=== PATIENT | female | born 1960 | race Caucasian/White ===

== ENCOUNTER 2017-06-30 19:12 | Emergency (ER) | payer OTHER ==
[2017-06-30] MEDS ORDERED: Sodium Phosphate ADULT ENEMA* 118 ml bottle PR ONE (19:50)
[2017-06-30 20:27] VITALS: BP 162/100
--- NOTE | 2017-06-30 20:34 | ED ---
Jose Martin Mensah Nikita, scribed for David Hatfield MD on 06/30/17 at 1958 . GI/ HPI - HPI Summary HPI Summary: This patient is a 56 year old F BIBA to ED with a chief complaint of intermittent bowel discomfort. The patient was seen by a public area supervisor where she had a pessori taken out (had it in for 12 years) and went to urgent care on the same day and was dx with PNA in the left lower lobe and non-STEMI TX. She had a catheter and a stent put in. The patient rates the pain 0/10 in severity. Symptoms aggravated by nothing. Symptoms alleviated by nothing (has been taking laxatives and last took 150mL mag citrate at 1500 with no results). Patient reports she had a small hard BM earlier today but was afraid to push, and she has been having rectal pressure. Her face has been getting red from straining while trying to have BM. Patient denies CP and difficulty breathing. - History of Current Complaint Chief Complaint: EDGeneral Time Seen by Provider: 06/30/17 19:24 Stated Complaint: GENERAL ILLNESS Hx Obtained From: Patient Onset/Duration: Started Weeks Ago, Still Present Timing: Intermittent Current Severity: None Pain Intensity: 0 Associated Signs and Symptoms: Positive: Other: - Patient reports she had a small hard BM earlier today but was afraid to push, and she has been having rectal pressure. Her face has been getting red from straining while trying to have BM. Patient denies CP and difficulty breathing. Additional Signs & Symptoms: Positive: Other: - Patient reports she had a small hard BM earlier today but was afraid to push, and she has been having rectal pressure. Her face has been getting red from straining while trying to have BM. Patient denies CP and difficulty breathing. Aggravating Factor(s): Nothing Alleviating Factor(s): Nothing - has been taking laxatives and last took 150mL mag citrate at 1500 with no results - Allergy/Home Medications Allergies/Adverse Reactions: Allergies Allergy/AdvReac Type Severity Reaction Status Date / Time Sulfa (Sulfonamide Allergy Unknown Verified 06/30/17 19:35 Antibiotics) Reaction Details PMH/Surg Hx/FS Hx/Imm Hx Cardiovascular History: Reports: Hx Myocardial Infarction Respiratory History: Reports: Hx Pneumonia Infectious Disease History: No Infectious Disease History: Denies: Traveled Outside the [place] in Last 30 Days - Social History Alcohol Use: Occasionally Substance Use Type: Reports: Marijuana Substance Use Comment - Amount & Last Used: weekly Smoking Status (MU): Light Every Day Tobacco Smoker Review of Systems Positive: Other - face has been getting red from straining Negative: Chest Pain Positive: Other - denies difficulty breathing Positive: Other - constipation, rectal pressure, bowel discomfort All Other Systems Reviewed And Are Negative: Yes Physical Exam - Summary Physical Exam Summary: Appearance: Well appearing, no pain distress Skin: warm, dry, reflects adequate perfusion Head/face: normal Eyes: EOMI, FRANCISCO ENT: normal Neck: supple, non-tender Respiratory: CTA, breath sounds present Cardiovascular: RRR, pulses symmetrical Abdomen: non-tender, soft Bowel Sounds: constipation Musculoskeletal: normal, strength/ROM intact Neuro: normal, sensory motor intact, A&Ox3 Rectal: soft stuff near the anus and hard stool on the vulva up higher, small external hemorrhoids, and no bladder or uterine prolapse Triage Information Reviewed: Yes Vital Signs On Initial Exam: Initial Vitals Temp Pulse Resp BP Pulse Ox 98.1 F 74 18 164/101 97 06/30/17 19:28 06/30/17 19:28 06/30/17 19:28 06/30/17 19:28 06/30/17 19:28 Vital Signs Reviewed: Yes Diagnostics - Vital Signs Vital Signs Temp Pulse Resp BP Pulse Ox 06/30/17 19:28 98.1 F 74 18 164/101 97 - Laboratory Lab Statement: Any lab studies that have been ordered have been reviewed, and results considered in the medical decision making process. GIGU Course/Dx - Course Course Of Treatment: Pt with hard stool on exam. States she was concerned about her BP going up when she was straining. No local doc. Gave enema for home use and meds for symptom control. Referred for local PMD -- for BP check etc. - Diagnoses Differential Diagnoses - Female: Constipation Provider Diagnoses: Constipation Discharge - Sign-Out/Discharge Documenting (check all that apply): Discharge - Discharge Plan Condition: Good Disposition: HOME Prescriptions: Bisacodyl SUPP* [Dulcolax Supp*] 10 mg .SEE ORDER BID PRN #10 supp PRN Reason: Constipation Polyethylene Glycol 3350 BTL* [Miralax] 1 cap PO TID PRN #1 btl PRN Reason: Constipation Patient Education Materials: Constipation (ED) Referrals: [facility] [Outside] No Primary Care Phys,NOPCP [Primary Care Provider] - Additional Instructions: Natural fruit juices may help. Use Miralax up to 3 times daily until stools are soft/loose. High fiber diet. Call to establish with a local doctor in the morning. - Billing Disposition and Condition Condition: GOOD Disposition: HOME The documentation as recorded by the Jose Martin east Nikita accurately reflects the service I personally performed and the decisions made by me, David Hatfield MD.
== END 2017-06-30 20:25 | disposition home or self-care (01) ==
LOC: ED 19:12
DX: K59.00 Constipation, unspecified (principal)
CPT/HCPCS: 99282; A9270-GY

== ENCOUNTER 2018-03-28 14:05 | Inpatient (IN) | payer OTHER ==
--- OUTSIDE RECORDS SUMMARY | 2018-03-28 14:26 | XMS REPORT | Continuity of Care Document ---
:1960 External Reference #:[id number] Author Name MayaLarryLianne osorio Care Team Providers Name Role Phone Julia Mercedes DO Primary Care Physician Unavailable Payers Type Date Identification Numbers Payment Provider Subscriber Policy Number: [id number] Santhosh Nelson PayID: [id number] [address] [place] [address] Advance Directives Description No Information Available Problems Description No Information Family History Description No Information Available Social History Type Date Description Comments Sex Unknown Lives With Assisted living [facility], [facility] Tobacco Use Start: Unknown End: Unknown Patient is a former smoker Smoking Status Reviewed: 03/28/18 Patient is a former smoker Allergies, Adverse Reactions, Alerts Date Description Reaction Status Severity Comments 03/27/2018 Sulfa Antibiotics Active Medications Medication Date Status Form Strength Qnty SIG Indications Ordering Provider Colace 03/26 Active Capsules 100mg Humaira Beronica Mauricio NP Clopidogrel Active Tablets 75mg 1 by mouth Unknown Bisulfate /0000 every day Hydrocodone-Ac Active Tablets 5-325mg 1 or 2 tabs Unknown etaminophen /0000 by mouth every 6-8 hours as needed for pain Lactulose Active Solution 10GM/15ML 15 Unknown /0000 milliliters three times a daily Lisinopril 00 Active Tablets 5mg 1 by mouth Unknown /0000 every day Metoprolol 00 Active Tablets 25mg 1 by mouth Unknown Succinate ER /0000 ER 24HR every day Nitroglycerin Active Tablets 0.4mg 1 sl q5mins Unknown /0000 Sub x3 as needed for chest pain Oxycodone HCL Active Capsules 5mg 1 - 2 tabs Unknown /0000 by mouth every 12 hours as needed pain Preparation H 00 Active Cream 5-14.4% apply to Unknown /0000 external rectal area four times a day as needed Tramadol HCL Active Tablets 50mg 1-2 tablets Unknown /0000 by mouth every 6 hours as needed pain Aspirin Adult Active Tablets 81mg 1 by mouth Unknown Low Dose /0000 DR every day Atorvastatin Active Tablets 40mg 1 by mouth Unknown Calcium /0000 every day Acetaminophen Active Tablets 500mg 2 tab 3 Unknown /0000 times daily as needed Immunizations Description No Information Available Vital Signs Date Vital Result Comment 03/28/2018 9:27am Height 61 inches 5'1" Weight 171.00 lb Heart Rate 72 /min BP Systolic 130 mmHg BP Diastolic 80 mmHg Respiratory Rate 16 /min Body Temperature 98.3 F BMI (Body Mass Index) 32.3 kg/m2 Results Description No Information Available Procedures Description No Information Available Encounters Description No Information Available Plan of Treatment 03/28/2018 - Adryan Loomis MD, FACSK61.0 Anal abscessRecommendations:warm compresses and/or Sitz bath to encourage healing.K59.00 Constipation, unspecifiedComments:Fecal impaction will require manual disimpaction.
[2018-03-28] MEDS ORDERED: Morphine INJ* 2 MG/ML 1 ML SYRINGE (TWO MG - NEW SYRINGE VERSION) IV ONE (16:22)
--- NOTE | 2018-03-28 16:25 | ED ---
Complex/Multi-Sys Presentation - HPI Summary HPI Summary: A 57 y/o female presents to the ED c/o severe constipation reaching 7/10 in severity. As per triage, "was seen at general surgeon this AM to eval for cyst near rectum. rectal exam done and referred to ED to eval for contipation. states last significant BM was 18 days ago. states cyst ruptured two days ago, also has hemrrhoids, both are very painful. reports fear/anxiety about stooling due to pain and family hx of RI with vagal/stooling. wound vac to right lower ext". According to the patient, on March 12, 2018 she had a femoral pop graft in which her 25 agnes from her groin and 20 agnes from her leg were recently removed. She stated that she has a wound vac due to a wound before her surgery. She stated that she was constipated before surgery but was able to use the bathroom very little. She became constipated during the surgery which is when all of a sudden after the surgery her cyst on her bottom popped which led to brown mucous and blood coming out. She stated that she was also bleeding from her rectum. She stated that she has so much pressure in her rectum. Patient is in in-patient rehabilitation for her injuries/surgeries, Patient stated that the surgeon at the rehab facility looked like a drain and was then referred to [facility] general surgery. Dr. Anderson who did a rectal, recommended the patient come to ED to have it surgically extracted. Patient denies any fevers, chills, double vision, blurred vision, ear pain, sore throat, chest pain, SOB, back pain, but does have anxiety. Patient also has trouble urinating. During examination, patient noted that she is much pain and is borderline tearful. Patient stated that she wants to be sedated and then undergo the procedure. PMHx of RI. Patient has been taking a stool softener. - History Of Current Complaint Chief Complaint: EDGeneral Hx Obtained From: Patient Onset/Duration: Sudden Onset, Lasting Days, Still Present, Worse Since Timing: Constant Severity Currently: Moderate - 7/10 Severity Initially: Moderate - 7/10 Location: Pain At: - RECTAL PAIN Character: Pressure Aggravating Factor(s): NOTHING Alleviating Factor(s): NOTHING Associated Signs And Symptoms: Positive: Other - DECREASE/DIFFICULTY IN URINATION - Allergies/Home Medications Allergies/Adverse Reactions: Allergies Allergy/AdvReac Type Severity Reaction Status Date / Time adhesive Allergy Itching Verified 03/28/18 14:20 Sulfa (Sulfonamide Allergy Unknown Verified 03/28/18 14:20 Antibiotics) Reaction Details Home Medications: Home Medications Anusol Hc Supp* 25 mg RI BID 03/28/18 [History Confirmed 03/28/18] Docusate Sodium 100 mg PO DAILY 03/28/18 [History Confirmed 03/28/18] Hydrocodone-Acetamin 5-325 mg 1 tab PO BEDTIME 03/28/18 [History Confirmed 03/28] Lactulose* 15 ml PO Q6HR PRN 03/28/18 [History Confirmed 03/28/18] Milk of Magnesia 30 ml PO Q6HR PRN 03/28/18 [History Confirmed 03/28/18] Nicorette 2 mg PO Q2HR PRN 03/28/18 [History Confirmed 03/28/18] Nicotine Inhaler* 1 inh INH Q2HR PRN 03/28/18 [History Confirmed 03/28/18] Oxycodone HCl 5 mg PO Q4HR PRN 03/28/18 [History Confirmed 03/28/18] Polyethylene Glycol 3350 BTL* [Miralax] 1 cap PO DAILY 03/28/18 [History Confirmed 03/28/18] Preparation H* 1 applic RI Q6HR PRN 03/28/18 [History Confirmed 03/28/18] Trimo-Flores Jelly 1 applic VAGINAL SEE INSTRUCTIONS 03/28/18 [History Confirmed ] Tylenol Extra Strength 1,000 mg PO Q6HR PRN 03/28/18 [History Confirmed 03/28/18 ] traMADol TAB* 50 mg PO Q6HR PRN 03/28/18 [History Confirmed 03/28/18] PMH/Surg Hx/FS Hx/Imm Hx Cardiovascular History: Reports: Hx Myocardial Infarction Respiratory History: Reports: Hx Pneumonia - Surgical History Surgery Procedure, Year, and Place: LEG SURGERY Infectious Disease History: No Infectious Disease History: Denies: Traveled Outside the [place] in Last 30 Days - Family History Known Family History: Negative: Diabetes - Social History Alcohol Use: Occasionally Substance Use Type: Reports: Marijuana Substance Use Comment - Amount & Last Used: weekly Smoking Status (MU): Light Every Day Tobacco Smoker Review of Systems Negative: Fever, Chills Positive: Other - NEGATIVE: DOUBLE VISION. Negative: Blurred Vision Negative: Sore Throat Negative: Chest Pain Negative: Shortness Of Breath Positive: Other - NEGATIVE: BLOOD IN STOOL; POSITIVE: CONSTIPATION, RECTAL JANIE. Negative: Abdominal Pain Positive: frequency - DECREASED. Negative: dysuria, hematuria Positive: Other - NEGATIVE: BACK PAIN, NECK PAIN. Negative: Edema Skin: Other - POSITIVE: WOUNDS Negative: Rash, Bruising Negative: Headache Positive: Anxious. Negative: Depressed All Other Systems Reviewed And Are Negative: No Physical Exam - Summary Physical Exam Summary: Appearance: Alert, conversive, nontoxic appearing Skin: Wound on the right inferior to the inguinal ligament that is clean, dry, and intact. Proximal portion slightly dehist with no drainage or tenderness, distal portion is clean dry and intact. HEENT: EOMI, PERRL, moist mucous membranes Neck: No masses on the neck, supple Respiratory: Clear to auscultation, breath sounds present, no rales, no rhonchi , no wheezes Cardiovascular: RRR, pulses are symmetrical in both lower and upper extremities Abdomen: Soft, non-tender Bowel Sounds: Present Musculoskeletal: No CVA tenderness, no obvious deformity, moving all extremities in a grossly normal manner Neurological: A&Ox3, CN II-XII Intact, moving all extremities symmetrically Psychiatric: Patient is anxious Triage Information Reviewed: Yes Vital Signs On Initial Exam: Initial Vitals Temp Pulse Resp BP Pulse Ox 97.8 F 103 16 113/80 99 03/28/18 14:11 03/28/18 14:11 03/28/18 14:11 03/28/18 14:11 03/28/18 14:11 Vital Signs Reviewed: Yes Diagnostics - Vital Signs Vital Signs Temp Pulse Resp BP Pulse Ox 03/28/18 16:07 74 103/65 96 03/28/18 16:06 74 98 03/28/18 14:11 97.8 F 103 16 113/80 99 - Laboratory Result Diagrams: 03/31/18 07:27 03/31/18 07:27 Lab Statement: Any lab studies that have been ordered have been reviewed, and results considered in the medical decision making process. - CT CT A/P CT Interpretation Completed By: Radiologist Summary of CT Findings: Fecal retention. No acute intra-abdominal findings. ED PHYSICIAN REVIEWED THIS RADIOLOGY REPORT. - Ultrasound No standard instances Ultrasound Interpretation Completed By: Radiologist Summary of Ultrasound Findings: VENOUS DOPPLER STUDY: No deep venous thrombosis to the level of the popliteal vein. ED PHYSICIAN REVIEWED THIS RADIOLOGY REPORT. Re-Evaluation - Re-Evaluation First Eval Re-Evaluation Time: 16:22 Change: Unchanged Comment: PATIENT REFUSES ULTRASOUND UNTIL SHE GETS MORPHINE. Second Eval Re-Evaluation Time: 16:50 Change: Unchanged Comment: NURSE AID LEFT STATUS UPDATE ON PATIENT. Complex Multi-Symp Course/Dx Course Of Treatment: A 57 y/o female presents to the ED c/o severe constipation reaching 7/10 in severity. Physical examination findings are significant for ound on the right inferior to the inguinal ligament that is clean, dry, and intact. Proximal portion slightly dehist with no drainage or tenderness, distal portion is clean dry and intact, pt is anxious. A CT A/P revealed fecal retention. No acute intra-abdominal findings. A Venous Doppler Study revealed no deep venous thrombosis to the level of the popliteal vein. Hematology, Chemistry, coagulation, and urinalysis screens were done. No significant laboratory abnormalities were found. In the ED course, the patient received Omnipaque and Morphine. Patient care was discussed with hospitalist, Dr. Riya Wilde who accepts patient for admission. Patient will be admitted with a diagnosis of constipation. Patient is agreeable with this plan. - Diagnoses Provider Diagnoses: Constipation - Physician Notifications Discussed Care Of Patient With: Riya Wilde Time Discussed With Above Provider: 21:52 Instructed by Provider To: Other - ACCEPTS PATIENT FOR ADMISSION. RECOMMENDS CALLING CHRIS. Discharge - Sign-Out/Discharge Documenting (check all that apply): Patient Departure - ADMIT, Sign-Out Patient - ROSANNA Signing out patient TO: Riya Wilde Receiving patient FROM: Lanette Nagel - Discharge Plan Condition: Stable Disposition: ADMITTED TO [facility] - Billing Disposition and Condition Condition: STABLE Disposition: Admitted to [facility] - Attestation Statements Document Initiated by Scribe: Yes Documenting Scribe: Savage Guy Provider For Whom Carlitose is Documenting (Include Credential): Lanette Nagel MD Scribe Attestation: Savage Mensah, scribed for Lanette Nagel MD on 03/31/18 at 1918. Scribe Documentation Reviewed: Yes Provider Attestation: The documentation as recorded by the scribe, Savage Guy accurately reflects the service I personally performed and the decisions made by me, Lanette Nagel MD Status of Scribe Document: Viewed
[2018-03-28] MEDS ORDERED: Morphine VIAL* 4 MG/ML VIAL (1 ml vial) ONE (17:20)
[2018-03-28 17:25] LABS: Hematocrit 40 % (35-47); Hemoglobin 13.3 g/dl (12.0-16.0); Mean Corpuscular HGB Conc 34 g/dl (31-36); Mean Corpuscular Hemoglobin 31 pg (27-31); Mean Corpuscular Volume 92 fL (80-97); Mean Platelet Volume 10.4 fL (7.4-10.4); Platelet Count 292 10^3/ul (150-450); Red Cell Distribution Width 13 % (10.5-15); White Blood Count 10.9 10^3/ul (3.5-10.8)
[2018-03-28 17:32] LABS: ALT 22 U/L (7-52); Albumin 4.2 g/dL (3.2-5.2); Albumin/Globulin Ratio 1.2 (1-3); Alkaline Phosphatase 125 U/L (34-104); BUN/Creatinine Ratio 24.1 (8-20); Blood Urea Nitrogen 21 mg/dL (6-24); CO2 Carbon Dioxide 26 mmol/L (22-32); Calcium 9.8 mg/dL (8.6-10.3); Chloride 100 mmol/L (101-111); EGFR Non-African American 67.1 (>60); Globulin 3.4 g/dL (2-4); Glucose 99 mg/dL (70-100); Sodium 135 mmol/L (135-145); Total Protein 7.6 g/dL (6.4-8.9)
[2018-03-28 17:36] LABS: Activated Partial Thrombo Time 25.7 seconds (26.0-36.3); INR 1.07 (0.77-1.02)
[2018-03-28 17:45] LABS: ABS Basophils 0.1 10^3/ul (0-0.2); ABS Eosinophils 0.1 10^3/ul (0-0.6); ABS Lymphocytes 3.1 10^3/ul (1.0-4.8); ABS Monocytes 0.9 10^3/ul (0-0.8); ABS Neutrophils 6.6 10^3/ul (1.5-7.7); ABS Nucleated RBC 0 10^3/ul; Eosinophil % 1.1 %; Lymphocyte % 28.7 %; Nucleated Red Blood Cells % 0
[2018-03-28 17:56] LABS: Anion Gap 9 mmol/L (2-11)
[2018-03-28] MEDS ORDERED: Morphine VIAL* 4 MG/ML VIAL (1 ml vial) IV ONE (18:00)
[2018-03-28] MEDS ORDERED: Iohexol 300* (CONTRAST) 10 ML SDV IV ONE (18:02)
[2018-03-28 20:15] LABS: Urine Appearance Cloudy; Urine Bacteria 1+ (Absent); Urine Bilirubin Negative (Negative); Urine Blood Negative (Negative); Urine Color Yellow; Urine Glucose Negative (Negative); Urine Ketones Negative (Negative); Urine Nitrite Negative (Negative); Urine Protein Negative (Negative); Urine Red Blood Cell Absent (Absent); Urine Urobilinogen Negative (Negative); Urine White Blood Cell 1+(6-10/hpf) (Absent)
[2018-03-28] MEDS ORDERED: Nicotine Inhaler* 10 MG AMP INH PRN (22:53)
[2018-03-28] MEDS ORDERED: Nicotine GUM* 2 MG PO PRN (22:53)
[2018-03-28] MEDS ORDERED: Bisacodyl SUPP* 10 MG SUPP PR PRN (22:53)
[2018-03-28] MEDS ORDERED: Nitroglycerin TAB 0.4 MG* 0.4 MG TAB SL PRN (22:53)
[2018-03-28] MEDS ORDERED: Mouth Piece, Nicotine* 1 EACH CARTRIDGE INH PRN (23:59)
--- NOTE | 2018-03-29 00:41 | HP ---
CC: Dr. Julia Mercedes HISTORY AND PHYSICAL: DATE OF ADMISSION: 03/28/18 TIME OF EVALUATION: 10:50 p.m. PRIMARY CARE PROVIDER: Dr. Julia Mercedes. CHIEF COMPLAINT: "I have not had a bowel movement in 18 days." HISTORY OF PRESENT ILLNESS: Mrs. Nelson is a 57-year-old lady with a past medical history of hypert ension, coronary artery disease status post stent in June 2017, hyperlipidemia, uterine prolapse wit h pessary use, status post recent fem-pop bypass, who presents to the emergency room with complaints of severe constipation and rectal bleeding. The patient states that she has had issues with constipation for some time. She actually had stool t hat was positive for blood, was seen by Dr. Bob as outpatient and actually had a colonoscopy done in December 2017. She had snare polypectomy and she states that she was taking hydrocodone 1 tablet at bedtime and with that she was able to still have bowel movements, but on 03/14/18, she underwent a fem-pop graft done at [facility] and after discharge, she went to [facility] for rehab because [facility] also has a wound VAC. She has been taking oxycodone and states that her constipation got much wors e. She states that her last "real bowel movement" was 18 days ago. With laxatives, she has had some small bowel movements, but she feels a lot of pressure in her rectum and she describes a cyst near h er rectum that "popped" this afternoon with significant bleeding. She was seen by Dr. Loomis in the office this afternoon and was sent to the emergency room for further evaluation. She tells me that Dr. Loomis had recommended surgical removal under sedation. The patient was offered the option of continuing laxatives, mag citrate, and enemas at the nursing [facility], but she is very concerned because it is very painful and she cannot even think about how much it is going to hurt when she has a bowel movement. Due to her significant pain, the hospitalist service was called for evaluation. PAST MEDICAL HISTORY: 1. Coronary artery disease, status post stent in June 2017. 2. Peripheral vascular disease with a chronic right lower extremity ulcer with a wound VAC, status p ost right fem-pop graft done earlier this month at [facility], on aspirin and Plavix now. 3. Hypertension. 4. Hyperlipidemia. 5. Uterine prolapse with pessary use. PAST SURGICAL HISTORY: 1. Status post cholecystectomy. 2. Status post appendectomy. 3. Status post right fem-pop graft as described above. FAMILY HISTORY: History of coronary artery disease. Family history of colon cancer. SOCIAL HISTORY: The patient is a smoker 10 cigarettes a day, had alcohol 1 to 2 drinks a week. Now, the patient is at [facility] for a rehabilitation after her surgery. Surrogate decision maker is her cousin, Ashia Hayward, phone number is [phone]. REVIEW OF SYSTEMS: A 14-point review of systems was performed and all the pertinent negative and pos itive findings are in the HPI. PHYSICAL EXAMINATION GENERAL: The patient is a middle-aged obese lady, lying in bed, in no acute distress. VITAL SIGNS: Temperature 98.0, heart rate is 88, respiratory rate 16, oxygen saturation 96% on room air, blood pressure is 116/64. HEENT: Pupils are equal. Moist mucous membranes. CHEST: Breath sounds bilaterally with no added sounds. CVS: Normal S1, S2. Regular rate and rhythm. ABDOMEN: Obese, bowel sounds are present. EXTREMITIES: The patient has a surgical scar on her right inner thigh and a wound VAC on her right c laith. RECTAL: The patient has multiple skin tags and external hemorrhoids. There is the small area open a round 3 o'clock that may suggest a fistula. There is no active bleeding at this time, but the patien t's pad does have some bright red blood on it. The patient declined digital rectal exam due to severe pain. NEUROLOGIC: She is alert and oriented x3. Able to move all 4 extremities. LABORATORY/IMAGING DATA: The patient had a CBC that showed WBC of 10.9, hemoglobin of 13.3, hematoc rit of 40, platelets of 292 with 60% neutrophils. INR is 1. Chemistry showed a sodium of 135, potass ium of 4, chloride of 100, bicarb of 26, BUN of 21, creatinine of 0.8, glucose of 99, lactic acid of 0.6, calcium of 9.8. LFTs are normal. Yulissa phos is 125. Urinalysis showed 2+ LE, 1+ wbc's, squamous cells present. Lower extremity Doppler showed no DVT of the right lower extremity. CT of the abdomen and pelvis julianne wed moderate amount of fecal material present through the colon and rectum. Findings compatible with fecal retention, but no other acute intraabdominal findings. ASSESSMENT AND PLAN: Mrs. Nelson is a 57-year-old female with a past medical history of coronary ar michael disease status post stent in June 2017, peripheral vascular disease, status post right fem-pop graft in early March 2018, hypertension, hyperlipidemia, who presents to the emergency room with co mplaints of severe constipation for 18 days associated with rectal pain and bleeding. 1. Fecal retention. The patient states that it is very painful to go to the bathroom. Per her desc ription, she probably had a rectal prolapse in the past, requiring her to push her rectum back in and she is very anxious that this will happen again. She does have external hemorrhoids and an open are a around 3 o'clock that could suggest a fistula. The patient will be admitted to the medical floor f or symptomatic treatment of her constipation and General Surgery consultation was requested by Dr. Shruthi allen with Dr. Boudreaux as the patient may benefit of manual disimpaction. We will continue her laxa tive regimen and we will add soapsuds enema if the patient can tolerate it. We will continue pain me dication. 2. Bright red blood per rectum. The patient may have a fistula/anal fissure. Although, she has some bright red blood per rectum on her pad, with her recent vascular surgery, we have to continue her as pirin and Plavix. Her CBC shows no significant anemia. 3. Hypertension. Her blood pressure is controlled. We will continue lisinopril and metoprolol. 4. Peripheral vascular disease. We will continue aspirin, Plavix, atorvastatin and we will obtain r ecords from [facility]. 5. DVT prophylaxis. The patient has a score of 2 on the DVT Prophylaxis Risk Assessment Guide and h eparin is contraindicated in the setting of bright red blood per rectum and SCDs are contraindicated because the patient has a wound VAC on the right leg, so she will have SCDs to her left leg only. 6. Code status is full. TIME SPENT: Approximately 45 minutes was spent with the patient interview, medical records review, p hysical examination to complete this admission, more than half of this time was spent [id number] wi th the patient and coordination of care. [id number]/[id number] #: [id number]
[2018-03-29] MEDS: Magnesium Hydroxide LIQ* 30 ML UDC PO PRN ×2 (01:21→16:10)
[2018-03-29] MEDS: Lactulose* 15 ML UDC PO PRN ×2 (01:21→16:10)
[2018-03-29] MEDS: oxyCODONE TAB* 5 MG TAB PO PRN ×3 (01:53→22:28)
[2018-03-29] MEDS ORDERED: Polyethylene Glycol 3350 BTL* 238 GM BTL PO SCH (09:00)
[2018-03-29] MEDS ORDERED: Ketorolac INJ* 15 MG/ML 1 ML VIAL IV PUSH ONE (09:14)
[2018-03-29] MEDS: Metoprolol Succinate XL TAB* 25 MG PO SCH (10:09)
[2018-03-29] MEDS: Docusate CAP* 100 MG PO SCH (10:09)
[2018-03-29] MEDS: Clopidogrel TAB* 75 MG PO SCH (10:09)
[2018-03-29] MEDS: Acetaminophen TAB* 325 MG PO PRN ×2 (10:09→18:26)
[2018-03-29] MEDS: Aspirin 81 mg CHEW TAB* 81 MG TAB.CHEW PO SCH (10:10)
[2018-03-29] MEDS: Lisinopril TAB* 5 MG PO SCH (10:10)
[2018-03-29] MEDS: Atorvastatin* 40 MG TAB PO SCH (10:11)
[2018-03-29] MEDS: Lidocaine 2% JELLY* 6 ML JELLY TOPICAL SCH ×3 (10:19→22:29)
[2018-03-29] MEDS: Polyethylene Glycol 3350* 17 GM PACKET PO SCH ×2 (10:31→22:26)
[2018-03-29] MEDS ORDERED: Diazepam TAB(*) 5 MG PO ONE (14:40)
[2018-03-29] MEDS ORDERED: NS 0.9% 250 ML* 250 ML IV ONE (15:36)
[2018-03-29 18:10] LABS: BUN/Creatinine Ratio 20.8 (8-20); Calcium 9.5 mg/dL (8.6-10.3); EGFR Non-African American 56.5 (>60); Potassium 4.1 mmol/L (3.5-5.0)
[2018-03-29] MEDS: cefTRIAXone(*) 1 GM in NS 0.9% 50 ML* 50 ML IVPB SCH (18:17)
[2018-03-29] MEDS: Hydrocortisone SUPP* 25 MG SUPP (2.5%) PR SCH ×2 (18:17→22:30)
[2018-03-29] MEDS: NS 0.9% 1000 ML* 1,000 ML IV SCH (19:44)
--- NOTE | 2018-03-29 20:19 | PN ---
Subjective Date of Service: 03/29/18 Interval History: Severe rectal pain in am.Improved with Lidocaine jelly Reports that she had some small BM and passing gas Objective Active Medications: Acetaminophen (Tylenol Tab*) 650 mg PO Q6H PRN PRN Reason: pain/fever Last Admin: 03/29/18 18:26 Dose: 650 mg Aspirin (Aspirin 81 Mg Chew Tab*) 81 mg PO DAILY [facility] Last Admin: 03/29/18 10:10 Dose: 81 mg Atorvastatin Calcium (Lipitor*) 40 mg PO DAILY [facility] Last Admin: 03/29/18 10:11 Dose: 40 mg Bisacodyl (Dulcolax Supp*) 10 mg SC BID PRN PRN Reason: CONSTIPATION Clopidogrel Bisulfate (Plavix Tab*) 75 mg PO DAILY [facility] Last Admin: 03/29/18 10:09 Dose: 75 mg Device (Nicotine Mouth Piece*) 1 each INH ONCE PRN PRN Reason: CRAVING Docusate Sodium (Colace Cap*) 100 mg PO DAILY [facility] Last Admin: 03/29/18 10:09 Dose: 100 mg Hydrocortisone (Anusol Hc Supp*) 25 mg SC BID [facility] Last Admin: 03/29/18 18:17 Dose: 25 mg Sodium Chloride (Ns 0.9% 1000 Ml*) 1,000 mls @ 100 mls/hr IV PER RATE [facility] Last Admin: 03/29/18 19:44 Dose: 100 mls/hr Ceftriaxone Sodium 1 gm/ (Sodium Chloride) 50 mls @ 200 mls/hr IVPB Q24H [facility] Last Admin: 03/29/18 18:17 Dose: 200 mls/hr Lactulose (Lactulose*) 15 ml PO Q6HR PRN PRN Reason: CONSTIPATION Last Admin: 03/29/18 16:10 Dose: 15 ml Lidocaine HCl (Lidocaine 2% Jelly*) 1 applic TOPICAL TID [facility] Last Admin: 03/29/18 14:37 Dose: 1 applic Lisinopril (Prinivil Tab*) 5 mg PO DAILY [facility] Last Admin: 03/29/18 10:10 Dose: 5 mg Magnesium Hydroxide (Milk Of Magnesia Liq*) 30 ml PO Q6HR PRN PRN Reason: CONSTIPATION Last Admin: 03/29/18 16:10 Dose: 30 ml Metoprolol Succinate (Toprol Xl Tab*) 25 mg PO DAILY [facility] Last Admin: 03/29/18 10:09 Dose: 25 mg Nicotine (Nicotine Inhaler*) 1 mg INH Q2H PRN PRN Reason: CRAVING Nicotine Polacrilex (Nicotine Gum*) 2 mg PO Q2H PRN PRN Reason: CRAVINGS Nitroglycerin (Nitroglycerin Tab 0.4 Mg*) 0.4 mg SL Q5M PRN PRN Reason: ANGINA Oxycodone HCl (Roxycodone Tab*) 5 mg PO Q4H PRN PRN Reason: PAIN Last Admin: 03/29/18 06:06 Dose: 5 mg Polyethylene Glycol/Electrolytes (Miralax*) 17 gm PO 0800,2100 [facility] Last Admin: 03/29/18 10:31 Dose: 17 gm Vital Signs - 8 hr 03/29/18 03/29/18 03/29/18 15:40 17:22 19:36 Temperature 98.0 F 98.6 F Pulse Rate 71 74 77 Respiratory 18 20 Rate Blood Pressure 98/55 93/71 119/73 (mmHg) O2 Sat by Pulse 99 99 Oximetry Oxygen Devices in Use Now: None Eyes: No Scleral Icterus Ears/Nose/Mouth/Throat: NL Teeth, Lips, Gums Neck: NL Appearance and Movements; NL JVP Respiratory: Symmetrical Chest Expansion and Respiratory Effort, Clear to Auscultation Cardiovascular: NL Sounds; No Murmurs; No JVD, RRR Abdominal: NL Sounds; No Tenderness; No Distention, - - Rectal external hemorrhoids,Perianal cyst ruptured and draining.No anais pus.Pt refused a rectal exam from pain Extremities: No Edema Skin: No Rash or Ulcers Neurological: Alert and Oriented x 3 Result Diagrams: 03/28/18 17:05 03/29/18 17:40 Microbiology and Other Data: Microbiology 03/29/18 01:20 Nasal Screen MRSA (PCR) - Final Nasal Mrsa Not Detected Assess/Plan/Problems-Billing Assessment: - Patient Problems (1) Fecal retention Current Visit: Yes Status: Acute Code(s): K59.00 - CONSTIPATION, UNSPECIFIED SNOMED Code(s): 12926764 Comment: Mod stool seen on CT scan No obstruction Seen by Dr Farrell in office.Discussed with him.Non-surgical per him and rec manual disimpaction Pt refuses manual disimpaction unless with complete sedation Beginning to pass gas and having BM with current regimen Will eval progress and reapproach with pt again Also pt noted to be hypotensive with BP in 80s and started on IVF .Possible UTI based on urine studies.Cultures pending.Will attempt disimpaction tomorrow if pt agrees and condition stable.BP improved.CBC obtained to evaluate Repeat CXR in am (2) Constipation Current Visit: Yes Status: Acute Code(s): K59.00 - CONSTIPATION, UNSPECIFIED SNOMED Code(s): 31770173 Comment: Continue current regimen Refusing suppositories due to soreness from hemorrhoids and ruptured cyst (3) PVD (peripheral vascular disease) Current Visit: Yes Status: Acute Code(s): I73.9 - PERIPHERAL VASCULAR DISEASE, UNSPECIFIED SNOMED Code(s): 956875310 Comment: s/p fem pop bypass wound vac in place (4) UTI (urinary tract infection) Current Visit: Yes Status: Acute Comment: Will check urine and blood culture Cover with emperic ceftriaxone for now (5) Hypotension Current Visit: Yes Status: Acute Comment: IVF 250cc bolus and NS at 100cc/hr Lactic acid CBC to eval for bleeding No change abd pain Will repeat Abd X ray and CXR BP improved Blood,urine xz Also poss infected cyst Will cover with Ceftriaxone for UTI for now and can expand coverage if needed (6) Hemorrhoids Current Visit: Yes Status: Acute Code(s): K64.9 - UNSPECIFIED HEMORRHOIDS SNOMED Code(s): 00232440 Comment: anusol supp, prep h,lidocaine jelly
[2018-03-29] MEDS ORDERED: Hemorrhoidal SUPP PR PRN (20:25)
[2018-03-29] MEDS ORDERED: Hemorrhoidal OINT PR PRN (20:26)
[2018-03-30] MEDS: Acetaminophen TAB* 325 MG PO PRN ×4 (02:24→23:41)
[2018-03-30] MEDS: Lidocaine 2% JELLY* 6 ML JELLY TOPICAL SCH ×4 (02:24→23:41)
[2018-03-30] MEDS: NS 0.9% 1000 ML* 1,000 ML IV SCH (03:38)
[2018-03-30 07:02] LABS: ABS Basophils 0.1 10^3/ul (0-0.2); ABS Eosinophils 0.1 10^3/ul (0-0.6); ABS Lymphocytes 2.2 10^3/ul (1.0-4.8); ABS Monocytes 0.9 10^3/ul (0-0.8); ABS Neutrophils 6.9 10^3/ul (1.5-7.7); ABS Nucleated RBC 0 10^3/ul; Hematocrit 35 % (35-47); Lymphocyte % 21.3 %; Mean Corpuscular HGB Conc 34 g/dl (31-36); Mean Corpuscular Hemoglobin 31 pg (27-31); Mean Corpuscular Volume 92 fL (80-97); Mean Platelet Volume 10.2 fL (7.4-10.4); Nucleated Red Blood Cells % 0.1; Platelet Count 246 10^3/ul (150-450); Red Blood Count 3.84 10^6/ul (4.00-5.40); Red Cell Distribution Width 13 % (10.5-15); White Blood Count 10.3 10^3/ul (3.5-10.8)
[2018-03-30 07:23] LABS: Calcium 8.9 mg/dL (8.6-10.3); EGFR Non-African American 73.9 (>60); Potassium 4.1 mmol/L (3.5-5.0)
[2018-03-30] MEDS: Polyethylene Glycol 3350* 17 GM PACKET PO SCH ×2 (10:30→23:34)
[2018-03-30] MEDS: Atorvastatin* 40 MG TAB PO SCH (11:06)
[2018-03-30] MEDS: Docusate CAP* 100 MG PO SCH (11:07)
[2018-03-30] MEDS: Clopidogrel TAB* 75 MG PO SCH (11:07)
[2018-03-30] MEDS: Aspirin 81 mg CHEW TAB* 81 MG TAB.CHEW PO SCH (11:08)
[2018-03-30] MEDS: Lactulose* 15 ML UDC PO PRN (11:13)
[2018-03-30] MEDS ORDERED: Diazepam TAB(*) 5 MG PO ONE (11:32)
[2018-03-30] MEDS ORDERED: Cyclobenzaprine TAB* 10 MG PO ONE (11:43)
[2018-03-30] MEDS: Hydrocortisone SUPP* 25 MG SUPP (2.5%) PR SCH ×2 (13:57→23:33)
[2018-03-30] MEDS: Metoprolol Succinate XL TAB* 25 MG PO SCH (13:59)
[2018-03-30] MEDS: Lisinopril TAB* 5 MG PO SCH (13:59)
--- NOTE | 2018-03-30 14:18 | PN ---
Subjective Date of Service: 03/30/18 Interval History: Bedside digital disimpaction performed of some stool after administration of po valium and flexeril that pt requested.Lubrication and lidocaine jelly used.Pt crying mid procedure and wanted to stop.Stool in the rectum felt to be semi soft (bristol stool type 5) with only a few solid pellets( bristol 1) on limited evacuation and exam.Pt willing to try enema now.Abd X ray reviewed. Objective Active Medications: Acetaminophen (Tylenol Tab*) 650 mg PO Q6H PRN PRN Reason: pain/fever Last Admin: 03/30/18 11:08 Dose: 650 mg Aspirin (Aspirin 81 Mg Chew Tab*) 81 mg PO DAILY [facility] [place] Last Admin: 03/30/18 11:08 Dose: 81 mg Atorvastatin Calcium (Lipitor*) 40 mg PO DAILY [facility] Last Admin: 03/30/18 11:06 Dose: 40 mg Bisacodyl (Dulcolax Supp*) 10 mg GA BID PRN PRN Reason: CONSTIPATION Clopidogrel Bisulfate (Plavix Tab*) 75 mg PO DAILY [facility] [place] Last Admin: 03/30/18 11:07 Dose: 75 mg Device (Nicotine Mouth Piece*) 1 each INH ONCE PRN PRN Reason: CRAVING Docusate Sodium (Colace Cap*) 100 mg PO DAILY [facility] [place] Last Admin: 03/30/18 11:07 Dose: 100 mg Hard Fat/Phenylephrine (Preparation H Supp*) 1 supp GA Q6H PRN PRN Reason: pain Hydrocortisone (Anusol Hc Supp*) 25 mg GA BID [facility] [place] Last Admin: 03/30/18 13:57 Dose: Not Given Sodium Chloride (Ns 0.9% 1000 Ml*) 1,000 mls @ 100 mls/hr IV PER RATE [facility] [place] Last Admin: 03/30/18 03:38 Dose: 100 mls/hr Ceftriaxone Sodium 1 gm/ (Sodium Chloride) 50 mls @ 200 mls/hr IVPB Q24H [facility] [place] Last Admin: 03/29/18 18:17 Dose: 200 mls/hr Lactulose (Lactulose*) 15 ml PO Q6HR PRN PRN Reason: CONSTIPATION Last Admin: 03/30/18 11:13 Dose: 15 ml Lidocaine HCl (Lidocaine 2% Jelly*) 1 applic TOPICAL TID [facility] [place] Last Admin: 03/30/18 12:40 Dose: 1 applic Lisinopril (Prinivil Tab*) 5 mg PO DAILY [facility] [place] Last Admin: 03/30/18 13:59 Dose: Not Given Magnesium Hydroxide (Milk Of Magnesia Liq*) 30 ml PO Q6HR PRN PRN Reason: CONSTIPATION Last Admin: 03/29/18 16:10 Dose: 30 ml Metoprolol Succinate (Toprol Xl Tab*) 25 mg PO DAILY [facility] [place] Last Admin: 03/30/18 13:59 Dose: Not Given Nicotine (Nicotine Inhaler*) 1 mg INH Q2H PRN PRN Reason: CRAVING Nicotine Polacrilex (Nicotine Gum*) 2 mg PO Q2H PRN PRN Reason: CRAVINGS Nitroglycerin (Nitroglycerin Tab 0.4 Mg*) 0.4 mg SL Q5M PRN PRN Reason: ANGINA Oxycodone HCl (Roxycodone Tab*) 5 mg PO Q4H PRN PRN Reason: PAIN Last Admin: 03/29/18 22:28 Dose: 5 mg Phenyleph/Shark Oil/Min Oil/Petrol (Preparation H*) 1 applic GA QID PRN PRN Reason: pain Last Admin: 03/29/18 22:29 Dose: 1 applic Polyethylene Glycol/Electrolytes (Miralax*) 17 gm PO 0800,2100 [facility] Last Admin: 03/30/18 10:30 Dose: 17 gm Vital Signs - 8 hr 03/30/18 03/30/18 03/30/18 08:12 11:48 11:53 Temperature 97.6 F 97.9 F Pulse Rate 105 74 Respiratory 16 16 18 Rate Blood Pressure 126/78 119/53 (mmHg) O2 Sat by Pulse 100 99 Oximetry 03/30/18 03/30/18 11:54 14:00 Temperature Pulse Rate Respiratory 18 15 Rate Blood Pressure (mmHg) O2 Sat by Pulse Oximetry Oxygen Devices in Use Now: None Eyes: No Scleral Icterus Ears/Nose/Mouth/Throat: NL Teeth, Lips, Gums Neck: NL Appearance and Movements; NL JVP Respiratory: Symmetrical Chest Expansion and Respiratory Effort, Clear to Auscultation Cardiovascular: NL Sounds; No Murmurs; No JVD, RRR Abdominal: NL Sounds; No Tenderness; No Distention Extremities: No Edema Skin: No Rash or Ulcers Result Diagrams: 03/30/18 06:46 03/30/18 06:46 Microbiology and Other Data: Microbiology 03/29/18 01:20 Nasal Screen MRSA (PCR) - Final Nasal Mrsa Not Detected Assess/Plan/Problems-Billing Assessment: - Patient Problems (1) Fecal retention Current Visit: Yes Status: Acute Code(s): K59.00 - CONSTIPATION, UNSPECIFIED SNOMED Code(s): 61487240 Comment: Mod stool seen on CT scan.Repeat X ray today continues to show large amount of stool. No obstruction Seen by Dr Farrell in office prior to hospitalization.Discussed with him.Non- surgical per him and rec manual disimpaction Bedside digital disimpaction performed of some stool after administration of po valium and flexeril that pt requested.Lubrication and lidocaine jelly used.Pt crying mid procedure and wanted to stop.Stool in the rectum felt to be semi soft (bristol stool type 5) with only a few solid pellets( bristol 1) on my limited evacuation and exam.Pt willing to try enema now.Abd X ray from this am reviewed. Passing BM multiple times so far and passing gas Will eval progress and reapproach with pt again.Pt requesting sedation and to be completely out if it has to be re-attempted (2) Constipation Current Visit: Yes Status: Acute Code(s): K59.00 - CONSTIPATION, UNSPECIFIED SNOMED Code(s): 09443956 Comment: Continue current regimen See above (3) PVD (peripheral vascular disease) Current Visit: Yes Status: Acute Code(s): I73.9 - PERIPHERAL VASCULAR DISEASE, UNSPECIFIED SNOMED Code(s): 311878757 Comment: s/p fem pop bypass wound vac in place (4) UTI (urinary tract infection) Current Visit: Yes Status: Acute Comment: ?UTI Will check urine and blood culture to eval for UTI Was hypotensive yesterday with BP in 80s.Improved with IVF. Cover with emperic ceftriaxone for now Cultures pending and will get CXR Also had dysuria last 2 days which has improved (5) Hypotension Current Visit: Yes Status: Acute Comment: Improved with bolus and IVF BP improved Blood,urine xz Also poss infected cyst Will cover with Ceftriaxone for UTI for now and can expand or deescalate coverage as needed (6) Hemorrhoids Current Visit: Yes Status: Acute Code(s): K64.9 - UNSPECIFIED HEMORRHOIDS SNOMED Code(s): 22316905 Comment: anusol supp, prep h,lidocaine jelly
[2018-03-30] MEDS: cefTRIAXone(*) 1 GM in NS 0.9% 50 ML* 50 ML IVPB SCH (15:04)
[2018-03-30] MEDS: Cyclobenzaprine TAB* 10 MG PO PRN (23:41)
[2018-03-31] MEDS: oxyCODONE TAB* 5 MG TAB PO PRN (00:04)
[2018-03-31] MEDS: Lidocaine 2% JELLY* 6 ML JELLY TOPICAL SCH ×5 (03:00→21:00)
[2018-03-31 07:43] LABS: ABS Basophils 0.1 10^3/ul (0-0.2); ABS Eosinophils 0.1 10^3/ul (0-0.6); ABS Lymphocytes 2.3 10^3/ul (1.0-4.8); ABS Monocytes 0.8 10^3/ul (0-0.8); ABS Neutrophils 5.5 10^3/ul (1.5-7.7); ABS Nucleated RBC 0 10^3/ul; Eosinophil % 1.4 %; Hematocrit 36 % (35-47); Hemoglobin 11.7 g/dl (12.0-16.0); Lymphocyte % 26.4 %; Mean Corpuscular HGB Conc 33 g/dl (31-36); Mean Corpuscular Hemoglobin 30 pg (27-31); Mean Corpuscular Volume 92 fL (80-97); Mean Platelet Volume 10.5 fL (7.4-10.4); Nucleated Red Blood Cells % 0; Platelet Count 242 10^3/ul (150-450); Red Blood Count 3.88 10^6/ul (4.00-5.40); Red Cell Distribution Width 14 % (10.5-15); White Blood Count 8.9 10^3/ul (3.5-10.8)
[2018-03-31 08:02] LABS: BUN/Creatinine Ratio 15.8 (8-20); EGFR Non-African American 78.4 (>60); Potassium 3.7 mmol/L (3.5-5.0)
--- NOTE | 2018-03-31 08:23 | ADMNOTE ---
Subjective Date of Service: 03/31/18 Interval History: HD #4 03/31/18 57 yo F with recent surgery came with rectal fecal retention Overnight VS This morning Review of Systems - Measurements Intake and Output: Intake and Output Last 24 Hours 03/29/18 03/30/18 03/31/18 04/01/18 06:59 06:59 06:59 06:59 Intake Total 0 4222 2320 Output Total 200 Balance 0 4222 2120 Weight 172 lb 9.6 oz Intake: IV Fluids 2692 560 Ceftriaoxone 846 50 NS 1846 510 Oral 0 1530 1760 Output: Urine 200 Other: Estimated Void Large # Bowel Movements 0 0 2 Estimated Stool Amount Large # Voids 0 1 Objective Active Medications: Acetaminophen (Tylenol Tab*) 650 mg PO Q6H PRN PRN Reason: pain/fever Last Admin: 03/30/18 23:41 Dose: 650 mg Aspirin (Aspirin 81 Mg Chew Tab*) 81 mg PO DAILY [facility] Last Admin: 03/30/18 11:08 Dose: 81 mg Atorvastatin Calcium (Lipitor*) 40 mg PO DAILY [facility] Last Admin: 03/30/18 11:06 Dose: 40 mg Bisacodyl (Dulcolax Supp*) 10 mg AL BID PRN PRN Reason: CONSTIPATION Clopidogrel Bisulfate (Plavix Tab*) 75 mg PO DAILY [facility] Last Admin: 03/30/18 11:07 Dose: 75 mg Cyclobenzaprine HCl (Flexeril Tab*) 10 mg PO TID PRN PRN Reason: SPASMS Last Admin: 03/30/18 23:41 Dose: 10 mg Device (Nicotine Mouth Piece*) 1 each INH ONCE PRN PRN Reason: CRAVING Docusate Sodium (Colace Cap*) 100 mg PO DAILY [facility] Last Admin: 03/30/18 11:07 Dose: 100 mg Hard Fat/Phenylephrine (Preparation H Supp*) 1 supp AL Q6H PRN PRN Reason: pain Hydrocortisone (Anusol Hc Supp*) 25 mg AL BID [facility] Last Admin: 03/30/18 23:33 Dose: Not Given Ceftriaxone Sodium 1 gm/ (Sodium Chloride) 50 mls @ 200 mls/hr IVPB Q24H [facility] Last Admin: 03/30/18 15:04 Dose: 200 mls/hr Lactulose (Lactulose*) 15 ml PO Q6HR PRN PRN Reason: CONSTIPATION Last Admin: 03/30/18 11:13 Dose: 15 ml Lidocaine (Lidoderm 5% Patch*) 1 patch TRANSDERM 0900 [facility] Lidocaine HCl (Lidocaine 2% Jelly*) 1 applic TOPICAL TID [facility] Last Admin: 03/30/18 23:41 Dose: 1 applic Lisinopril (Prinivil Tab*) 5 mg PO DAILY [facility] Last Admin: 03/30/18 13:59 Dose: Not Given Magnesium Hydroxide (Milk Of Magnesia Liq*) 30 ml PO Q6HR PRN PRN Reason: CONSTIPATION Last Admin: 03/29/18 16:10 Dose: 30 ml Metoprolol Succinate (Toprol Xl Tab*) 25 mg PO DAILY [facility] Last Admin: 03/30/18 13:59 Dose: Not Given Nicotine (Nicotine Inhaler*) 1 mg INH Q2H PRN PRN Reason: CRAVING Nicotine Polacrilex (Nicotine Gum*) 2 mg PO Q2H PRN PRN Reason: CRAVINGS Nitroglycerin (Nitroglycerin Tab 0.4 Mg*) 0.4 mg SL Q5M PRN PRN Reason: ANGINA Oxycodone HCl (Roxycodone Tab*) 5 mg PO Q4H PRN PRN Reason: PAIN Last Admin: 03/31/18 00:04 Dose: 5 mg Pharmacy Profile Note (Lidocaine Patch Remove*) 1 note PATCH OFF [address] [facility] Phenyleph/Shark Oil/Min Oil/Petrol (Preparation H*) 1 applic AL QID PRN PRN Reason: pain Last Admin: 03/29/18 22:29 Dose: 1 applic Polyethylene Glycol/Electrolytes (Miralax*) 17 gm PO 0800,2100 [facility] Last Admin: 03/30/18 23:34 Dose: Not Given Vital Signs - 8 hr 03/31/18 03:04 Temperature 97.4 F Pulse Rate 99 Respiratory 16 Rate Blood Pressure 140/80 (mmHg) O2 Sat by Pulse 99 Oximetry Oxygen Devices in Use Now: None Result Diagrams: 03/31/18 07:27 03/31/18 07:27 Microbiology and Other Data: Microbiology 03/29/18 01:20 Nasal Screen MRSA (PCR) - Final Nasal Mrsa Not Detected Assess/Plan/Problems-Billing Assessment: 57 yo F with recent surgery presented with fecal retention
[2018-03-31] MEDS: Polyethylene Glycol 3350* 17 GM PACKET PO SCH ×2 (08:49→21:55)
[2018-03-31] MEDS: Clopidogrel TAB* 75 MG PO SCH (09:52)
[2018-03-31] MEDS: Atorvastatin* 40 MG TAB PO SCH (09:52)
[2018-03-31] MEDS: Aspirin 81 mg CHEW TAB* 81 MG TAB.CHEW PO SCH (09:52)
[2018-03-31] MEDS: Lidocaine PATCH 5%* 1 PATCH TRANSDERM SCH (09:54)
[2018-03-31] MEDS: Lisinopril TAB* 5 MG PO SCH (10:25)
[2018-03-31] MEDS: Docusate CAP* 100 MG PO SCH (10:25)
[2018-03-31] MEDS: Metoprolol Succinate XL TAB* 25 MG PO SCH (10:26)
[2018-03-31] MEDS: Acetaminophen TAB* 325 MG PO PRN ×2 (10:26→19:54)
[2018-03-31] MEDS: Cyclobenzaprine TAB* 10 MG PO PRN ×2 (10:27→19:53)
[2018-03-31] MEDS: Hydrocortisone SUPP* 25 MG SUPP (2.5%) PR SCH ×2 (11:06→21:55)
[2018-03-31] MEDS ORDERED: Lidocaine Patch REMOVE* 1 NOTE MISC PATCH OFF SCH ×2 (13:00→22:00)
[2018-03-31] MEDS: cefTRIAXone(*) 1 GM in NS 0.9% 50 ML* 50 ML IVPB SCH (15:45)
--- NOTE | 2018-03-31 18:33 | PN ---
Subjective Date of Service: 03/31/18 Interval History: HD# 4 03/31/18 57 yo F with recent PVD fempop bypass with chronic wound vac, CAD s/p PCI, uterine prolpase, opiate use c/b severe constipation with ? rectal prolapse and fecal retention presents with severe fecal retention. Overnight, had copious diarrhea after unsuccessful manual disimpaction, continues to have loose BM. no BRBPR. VS: Afebrile, normotensive, HR normals, satting well on RA, voiding urine normally This morning seen and CXR (not AXR) done which does not eval stool bruden, she is having loose BM, unclear if still hard stool. Would like to advance diet, we agree on mechanical soft. Otherwise no CP, SOB, N/V, largely just frustrated. Objective Active Medications: Acetaminophen (Tylenol Tab*) 650 mg PO Q6H PRN PRN Reason: pain/fever Last Admin: 03/31/18 10:26 Dose: 650 mg Aspirin (Aspirin 81 Mg Chew Tab*) 81 mg PO DAILY [facility] Last Admin: 03/31/18 09:52 Dose: 81 mg Atorvastatin Calcium (Lipitor*) 40 mg PO DAILY [facility] Last Admin: 03/31/18 09:52 Dose: 40 mg Bisacodyl (Dulcolax Supp*) 10 mg IN BID PRN PRN Reason: CONSTIPATION Clopidogrel Bisulfate (Plavix Tab*) 75 mg PO DAILY [facility] Last Admin: 03/31/18 09:52 Dose: 75 mg Cyclobenzaprine HCl (Flexeril Tab*) 10 mg PO TID PRN PRN Reason: SPASMS Last Admin: 03/31/18 10:27 Dose: 10 mg Device (Nicotine Mouth Piece*) 1 each INH ONCE PRN PRN Reason: CRAVING Docusate Sodium (Colace Cap*) 100 mg PO DAILY [facility] Last Admin: 03/31/18 10:25 Dose: Not Given Hard Fat/Phenylephrine (Preparation H Supp*) 1 supp IN Q6H PRN PRN Reason: pain Hydrocortisone (Anusol Hc Supp*) 25 mg IN BID [facility] Last Admin: 03/31/18 11:06 Dose: Not Given Ceftriaxone Sodium 1 gm/ (Sodium Chloride) 50 mls @ 200 mls/hr IVPB Q24H [facility] Last Admin: 03/31/18 15:45 Dose: 200 mls/hr Lactulose (Lactulose*) 15 ml PO Q6HR PRN PRN Reason: CONSTIPATION Last Admin: 03/30/18 11:13 Dose: 15 ml Lidocaine (Lidoderm 5% Patch*) 1 patch TRANSDERM 0900 [facility] Last Admin: 03/31/18 09:54 Dose: 1 patch Lidocaine HCl (Lidocaine 2% Jelly*) 1 applic TOPICAL TID [facility] Last Admin: 03/31/18 15:45 Dose: 1 applic Lisinopril (Prinivil Tab*) 5 mg PO DAILY [facility] Last Admin: 03/31/18 10:25 Dose: Not Given Magnesium Hydroxide (Milk Of Magnsuzie Liq*) 30 ml PO Q6HR PRN PRN Reason: CONSTIPATION Last Admin: 03/29/18 16:10 Dose: 30 ml Metoprolol Succinate (Toprol Xl Tab*) 25 mg PO DAILY [facility] Last Admin: 03/31/18 10:26 Dose: Not Given Nicotine (Nicotine Inhaler*) 1 mg INH Q2H PRN PRN Reason: CRAVING Nicotine Polacrilex (Nicotine Gum*) 2 mg PO Q2H PRN PRN Reason: CRAVINGS Nitroglycerin (Nitroglycerin Tab 0.4 Mg*) 0.4 mg SL Q5M PRN PRN Reason: ANGINA Oxycodone HCl (Roxycodone Tab*) 5 mg PO Q4H PRN PRN Reason: PAIN Last Admin: 03/31/18 00:04 Dose: 5 mg Pharmacy Profile Note (Lidocaine Patch Remove*) 1 note PATCH OFF [address] [facility] Phenyleph/Shark Oil/Min Oil/Petrol (Preparation H*) 1 applic IN QID PRN PRN Reason: pain Last Admin: 03/29/18 22:29 Dose: 1 applic Polyethylene Glycol/Electrolytes (Miralax*) 17 gm PO 0800,2100 [facility] Last Admin: 03/31/18 08:49 Dose: Not Given Vital Signs - 8 hr 03/31/18 03/31/18 03/31/18 11:20 12:00 15:26 Temperature 97.6 F 98.6 F Pulse Rate 77 94 Respiratory 17 16 18 Rate Blood Pressure 136/72 121/71 (mmHg) O2 Sat by Pulse 91 96 Oximetry Oxygen Devices in Use Now: None Appearance: Well woman in bed Eyes: No Scleral Icterus, PERRLA Ears/Nose/Mouth/Throat: NL Teeth, Lips, Gums, Mucous Membranes Moist Neck: NL Appearance and Movements; NL JVP Respiratory: Symmetrical Chest Expansion and Respiratory Effort, Clear to Auscultation Cardiovascular: NL Sounds; No Murmurs; No JVD, RRR Abdominal: NL Sounds; No Tenderness; No Distention, - - MIld TTP RLQ Lymphatic: No Cervical Adenopathy Extremities: No Edema, - - Wound vac on R Skin: No Rash or Ulcers Neurological: Alert and Oriented x 3 Result Diagrams: 03/31/18 07:27 03/31/18 07:27 Microbiology and Other Data: Microbiology 03/29/18 17:40 Aerobic Blood Culture - Preliminary No Source Provided No Growth Day 2 Anaerobic Blood Culture - Preliminary No Growth Day 2 03/28/18 20:00 Urine Culture - Final Urine No Growth (<1,000 CFU/mL) 03/29/18 01:20 Nasal Screen MRSA (PCR) - Final Nasal Mrsa Not Detected Assess/Plan/Problems-Billing Assessment: 57 yo F with recent PVD fempop bypass with chronic wound vac, CAD s/p PCI, uterine prolpase, opiate use c/b severe constipation with ? rectal prolapse and fecal retention presents with severe fecal retention. - Patient Problems (1) Fecal retention Current Visit: Yes Status: Acute Code(s): K59.00 - CONSTIPATION, UNSPECIFIED SNOMED Code(s): 57751281 Comment: Mod stool seen on CT scan.Repeat X ray today continues to show large amount of stool. No obstruction Seen by Dr Farrell in office prior to hospitalization.Discussed with him.Non- surgical per him and rec manual disimpaction Bedside digital disimpaction performed of some stool after administration of po valium and flexeril that pt requested.Lubrication and lidocaine jelly used.Pt crying mid procedure and wanted to stop.Stool in the rectum felt to be semi soft (bristol stool type 5) with only a few solid pellets( bristol 1) on my limited evacuation and exam.Pt willing to try enema now.Abd X ray repeat in AM Passing BM multiple times so far and passing gas Will eval progress and reapproach with pt if further disimpaction needed (2) UTI (urinary tract infection) Current Visit: Yes Status: Acute Comment: ?UTI Will check urine and blood culture to eval for UTI-neg Was hypotensive, now stable DC CTX, unremarkable CXR and cultures (3) Constipation Current Visit: Yes Status: Acute Code(s): K59.00 - CONSTIPATION, UNSPECIFIED SNOMED Code(s): 13150878 Comment: Continue current regimen, Lactulosoe, Suppsitory, Miralax PRN, convo for pt to avoid opiates (4) Hemorrhoids Current Visit: Yes Status: Acute Code(s): K64.9 - UNSPECIFIED HEMORRHOIDS SNOMED Code(s): 49859884 Comment: anusol supp, prep h,lidocaine jelly (5) PVD (peripheral vascular disease) Current Visit: Yes Status: Acute Code(s): I73.9 - PERIPHERAL VASCULAR DISEASE, UNSPECIFIED SNOMED Code(s): 731549935 Comment: s/p fem pop bypass wound vac in place (6) DVT prophylaxis Current Visit: Yes Status: Acute Code(s): OJQ3203 - SNOMED Code(s): 307590079 Comment: Ambulaotry Status and Disposition: Inpatient, possible d/c if KUB reassuring tomorrow
[2018-03-31] MEDS ORDERED: traMADol TAB* 50 MG PO PRN (18:40)
[2018-03-31] MEDS ORDERED: Lidocaine Patch REMOVE* 1 NOTE MISC SCH (21:00)
[2018-04-01 06:25] LABS: ABS Basophils 0.1 10^3/ul (0-0.2); ABS Eosinophils 0.2 10^3/ul (0-0.6); ABS Lymphocytes 3.1 10^3/ul (1.0-4.8); ABS Monocytes 0.9 10^3/ul (0-0.8); ABS Neutrophils 5.2 10^3/ul (1.5-7.7); ABS Nucleated RBC 0 10^3/ul; Eosinophil % 2.2 %; Hematocrit 33 % (35-47); Hemoglobin 11.2 g/dl (12.0-16.0); Lymphocyte % 32.7 %; Mean Corpuscular HGB Conc 34 g/dl (31-36); Mean Corpuscular Hemoglobin 31 pg (27-31); Mean Corpuscular Volume 92 fL (80-97); Mean Platelet Volume 11.1 fL (7.4-10.4); Nucleated Red Blood Cells % 0; Platelet Count 221 10^3/ul (150-450); Red Blood Count 3.62 10^6/ul (4.00-5.40); Red Cell Distribution Width 13 % (10.5-15); White Blood Count 9.4 10^3/ul (3.5-10.8)
[2018-04-01 06:42] LABS: BUN/Creatinine Ratio 18.3 (8-20); Calcium 8.9 mg/dL (8.6-10.3); EGFR Non-African American 84.8 (>60); Potassium 3.7 mmol/L (3.5-5.0)
[2018-04-01] MEDS: Polyethylene Glycol 3350* 17 GM PACKET PO SCH (09:22)
[2018-04-01] MEDS: Hydrocortisone SUPP* 25 MG SUPP (2.5%) PR SCH (09:23)
[2018-04-01] MEDS: Docusate CAP* 100 MG PO SCH (09:23)
[2018-04-01] MEDS: Lidocaine 2% JELLY* 6 ML JELLY TOPICAL SCH ×2 (09:23→14:20)
[2018-04-01] MEDS: Lidocaine PATCH 5%* 1 PATCH TRANSDERM SCH (09:26)
[2018-04-01] MEDS: Metoprolol Succinate XL TAB* 25 MG PO SCH (09:28)
[2018-04-01] MEDS: Aspirin 81 mg CHEW TAB* 81 MG TAB.CHEW PO SCH (09:29)
[2018-04-01] MEDS: Clopidogrel TAB* 75 MG PO SCH (09:29)
[2018-04-01] MEDS: Lisinopril TAB* 5 MG PO SCH (09:29)
[2018-04-01] MEDS: Atorvastatin* 40 MG TAB PO SCH (09:29)
[2018-04-01] MEDS: Cyclobenzaprine TAB* 10 MG PO PRN ×2 (09:34→17:04)
[2018-04-01] MEDS: Acetaminophen TAB* 325 MG PO PRN ×2 (09:34→17:04)
--- NOTE | 2018-04-01 10:54 | PN ---
Subjective Date of Service: 04/01/18 Interval History: HD# 5 04/01/18 57 yo F with recent PVD fempop bypass with chronic wound vac, CAD s/p PCI, uterine prolpase, opiate use c/b severe constipation with ? rectal prolapse and fecal retention presents with severe fecal retention. Overnight, had copious diarrhea after unsuccessful manual disimpaction 2 days ago, continues to have loose BM. no BRBPR. VS: Afebrile, normotensive, HR normals, satting well on RA, voiding urine normally This morning seen and AXR does show decrease in stool burden, she still feels there is stool in her colon, though we see things are improving on AXR. Would like to advance diet, we agree on mechanical soft. Otherwise no CP, SOB, N/V, largely just frustrated. Objective Active Medications: Acetaminophen (Tylenol Tab*) 650 mg PO Q6H PRN PRN Reason: pain/fever Last Admin: 04/01/18 09:34 Dose: 650 mg Aspirin (Aspirin 81 Mg Chew Tab*) 81 mg PO DAILY [facility] Last Admin: 04/01/18 09:29 Dose: 81 mg Atorvastatin Calcium (Lipitor*) 40 mg PO DAILY [facility] Last Admin: 04/01/18 09:29 Dose: 40 mg Bisacodyl (Dulcolax Supp*) 10 mg MI BID PRN PRN Reason: CONSTIPATION Clopidogrel Bisulfate (Plavix Tab*) 75 mg PO DAILY [facility] Last Admin: 04/01/18 09:29 Dose: 75 mg Cyclobenzaprine HCl (Flexeril Tab*) 5 mg PO TID PRN PRN Reason: SPASMS Last Admin: 04/01/18 09:34 Dose: 5 mg Device (Nicotine Mouth Piece*) 1 each INH ONCE PRN PRN Reason: CRAVING Docusate Sodium (Colace Cap*) 100 mg PO DAILY [facility] Last Admin: 04/01/18 09:23 Dose: Not Given Hard Fat/Phenylephrine (Preparation H Supp*) 1 supp MI Q6H PRN PRN Reason: pain Hydrocortisone (Anusol Hc Supp*) 25 mg MI BID [facility] Last Admin: 04/01/18 09:23 Dose: Not Given Lactulose (Lactulose*) 15 ml PO Q6HR PRN PRN Reason: CONSTIPATION Last Admin: 03/30/18 11:13 Dose: 15 ml Lidocaine (Lidoderm 5% Patch*) 1 patch TRANSDERM 0900 [facility] Last Admin: 04/01/18 09:26 Dose: 1 patch Lidocaine HCl (Lidocaine 2% Jelly*) 1 applic TOPICAL TID [facility] Last Admin: 04/01/18 09:23 Dose: Not Given Lisinopril (Prinivil Tab*) 5 mg PO DAILY [facility] Last Admin: 04/01/18 09:29 Dose: 5 mg Magnesium Hydroxide (Milk Of Magnesia Liq*) 30 ml PO Q6HR PRN PRN Reason: CONSTIPATION Last Admin: 03/29/18 16:10 Dose: 30 ml Metoprolol Succinate (Toprol Xl Tab*) 25 mg PO DAILY [facility] Last Admin: 04/01/18 09:28 Dose: 25 mg Nicotine (Nicotine Inhaler*) 1 mg INH Q2H PRN PRN Reason: CRAVING Nicotine Polacrilex (Nicotine Gum*) 2 mg PO Q2H PRN PRN Reason: CRAVINGS Nitroglycerin (Nitroglycerin Tab 0.4 Mg*) 0.4 mg SL Q5M PRN PRN Reason: ANGINA Pharmacy Profile Note (Lidocaine Patch Remove*) 1 note PATCH OFF 2200 [facility] Last Admin: 03/31/18 21:00 Dose: 1 note Phenyleph/Shark Oil/Min Oil/Petrol (Preparation H*) 1 applic MI QID PRN PRN Reason: pain Last Admin: 03/29/18 22:29 Dose: 1 applic Polyethylene Glycol/Electrolytes (Miralax*) 17 gm PO 0800,2100 [facility] Last Admin: 04/01/18 09:22 Dose: Not Given Tramadol HCl (Ultram*) 50 mg PO Q8H PRN PRN Reason: PAIN Last Admin: 03/31/18 19:54 Dose: 50 mg Vital Signs - 8 hr 04/01/18 04/01/18 04/01/18 03:09 06:43 09:34 Temperature 97.1 F 97.4 F Pulse Rate 77 78 Respiratory 18 18 18 Rate Blood Pressure 106/74 113/70 (mmHg) O2 Sat by Pulse 96 96 Oximetry 04/01/18 09:38 Temperature Pulse Rate Respiratory 16 Rate Blood Pressure (mmHg) O2 Sat by Pulse Oximetry Oxygen Devices in Use Now: None Appearance: Well woman in nad Ears/Nose/Mouth/Throat: NL Teeth, Lips, Gums, Mucous Membranes Moist Neck: NL Appearance and Movements; NL JVP Respiratory: Symmetrical Chest Expansion and Respiratory Effort, Clear to Auscultation Cardiovascular: NL Sounds; No Murmurs; No JVD, RRR Abdominal: NL Sounds; No Tenderness; No Distention Lymphatic: No Cervical Adenopathy Extremities: No Edema Skin: No Rash or Ulcers Neurological: Alert and Oriented x 3 Result Diagrams: 04/01/18 05:46 04/01/18 05:46 Microbiology and Other Data: Microbiology 03/29/18 17:40 Aerobic Blood Culture - Preliminary No Source Provided No Growth Day 2 Anaerobic Blood Culture - Preliminary No Growth Day 2 03/28/18 20:00 Urine Culture - Final Urine No Growth (<1,000 CFU/mL) 03/29/18 01:20 Nasal Screen MRSA (PCR) - Final Nasal Mrsa Not Detected Assess/Plan/Problems-Billing Assessment: 57 yo F with recent PVD fempop bypass with chronic wound vac, CAD s/p PCI, uterine prolpase, opiate use c/b severe constipation with ? rectal prolapse and fecal retention presents with severe fecal retention, now improving on serial AXR with aggressive bowel regimen - Patient Problems (1) Fecal retention Current Visit: Yes Status: Acute Code(s): K59.00 - CONSTIPATION, UNSPECIFIED SNOMED Code(s): 46976153 Comment: --Mod stool seen on CT scan on admission. Repeat X ray today show decrease in stool burden --Seen by Dr Farrell in office prior to hospitalization.Discussed with him.Non- surgical per him and rec manual disimpaction, dedside digital disimpaction performed of some stool after administration of po valium and flexeril that pt requested.Lubrication and lidocaine jelly used.Pt crying mid procedure and wanted to stop.Stool in the rectum felt to be semi soft (bristol stool type 5) with only a few solid pellets( bristol 1) on prior exam Passing BM multiple times so far and passing gas Likely stable for d/c (2) UTI (urinary tract infection) Current Visit: Yes Status: Acute Comment: ?UTI Will check urine and blood culture to eval for UTI-neg Was hypotensive, now stable DC CTX, unremarkable CXR and cultures (3) Constipation Current Visit: Yes Status: Acute Code(s): K59.00 - CONSTIPATION, UNSPECIFIED SNOMED Code(s): 53944377 Comment: Continue current regimen, Lactulosoe, Suppsitory, Miralax PRN, convo for pt to avoid opiates (4) Hemorrhoids Current Visit: Yes Status: Acute Code(s): K64.9 - UNSPECIFIED HEMORRHOIDS SNOMED Code(s): 80945630 Comment: anusol supp, prep h,lidocaine jelly (5) PVD (peripheral vascular disease) Current Visit: Yes Status: Acute Code(s): I73.9 - PERIPHERAL VASCULAR DISEASE, UNSPECIFIED SNOMED Code(s): 931306818 Comment: s/p fem pop bypass wound vac in place (6) DVT prophylaxis Current Visit: Yes Status: Acute Code(s): VXU5674 - SNOMED Code(s): 363489949 Comment: Ambulaotry Status and Disposition: Likely D/C today
--- NOTE | 2018-04-01 14:18 | DS ---
DISCHARGE SUMMARY: DATE OF ADMISSION: 03/28/18 DATE OF DISCHARGE: Anticipated to be 04/01/18. PRIMARY DIAGNOSES: Constipation and fecal retention of stool. SECONDARY DIAGNOSES: 1. Coronary artery disease status post PCI in June of 2017. 2. Peripheral vascular disease with chronic right lower extremity ulcer with wound VAC, status post right fem-pop graft done March 2018, on aspirin and Plavix. 3. Hypertension. 4. Hyperlipidemia. 5. Uterine prolapse with pessary in place. MEDICATIONS ON DISCHARGE: As follows: 1. She has Anusol Hydrocortisone Suppositories 25 mg per rectum b.i.d. p.r.n. for pain. 2. Aspirin 81 mg p.o. daily. 3. Atorvastatin 40 mg p.o. daily. 4. Dulcolax suppository 10 mg per rectum b.i.d. p.r.n. for constipation. 5. Clopidogrel 75 mg p.o. daily. 6. Docusate 100 mg p.o. daily. 7. Ibuprofen 600 mg p.o. q.8 hours p.r.n. for pain. 8. Lactulose 15 mL p.o. q.6 hours p.r.n. for constipation. 9. Lisinopril 5 mg p.o. daily. 10. Metoprolol succinate 25 mg p.o. daily. 11. Milk of magnesia 30 mL p.o. q.6 hours p.r.n. for constipation and upset stomach. 12. Nicotine inhaler, 1 inhaler q.2 hours p.r.n. for cravings. 13. Nicorette gum 2 mg p.o. q.2 hours as needed for cravings. 14. Nitroglycerin tab 0.4 mg sublingual q.5 minutes x3 as needed for chest pain. 15. Polyethylene glycol 1 cap p.o. daily. 16. Preparation H one application per rectum q.6 hours as needed for pain. 17. Tramadol 50 mg p.o. q.6 hours as needed for pain. 18. Trimo-Flores Jelly 1 application per vagina daily. 19. Tylenol Extra Strength 1000 mg p.o. q.6 hours. 20. Cyclobenzaprine 5 mg p.o. t.i.d. p.r.n. for pain. 21. Lidocaine patch, 1 patch applied daily to affected area, to remove q.12 hours as needed for pain and lidocaine 2% jelly 1 application per rectum up to t.i.d. p.r.n. for pain. The major medication changes on this hospitalization were the discontinuation of hydrocodone as it wa s constipating. Furthermore, the discontinuation of oxycodone as that was constipating. Pain medication that remains is tramadol, Tylenol, Flexeril, ibuprofen. Furthermore, the addition of lidocaine 2% jelly as needed to apply per rectum was a change. Lidocain e patch to apply to affected area was added as needed as well and cyclobenzaprine 5 mg p.o. t.i.d. p. r.n. for pain was added on this hospitalization. HISTORY OF PRESENT ILLNESS AND HOSPITAL COURSE: This is a 57-year-old female with above past medical history who presented to the emergency room with complaints of severe constipation and rectal bleedi ng. She had complained of constipation for about a month. She is currently residing at [facility] for rehab secondary to her recent fem-pop bypass graft and had increasing pain medications including opioid pain medications. In the emergency room, she had a CBC notable for white blood cell count of 10.9, hemoglobin of 13, hematocrit of 40, platelets of 292. Her chemistry, her BMP was unremarkable. Her lactic acid was 0.6. Urinalysis showed 2+ leuk esterase and 1+ white blood cells. A CT of the abdomen and pelvis showed moderate amount of fecal material present throughout the colon and rectum with findings compatible with fecal retention, no other acute intraabdominal findings and no evidence of stercoral colitis. Her vital signs were stable in the emergency room. She was admitted to the ospitalist service for further treatment and care. Her hospital course by problem is as follows: 1. Constipation and fecal retention. As per admission CT scan, she did not have evidence of any obs truction or colitis of the bowel wall. She was seen by her surgeon, Dr. Loomis in the office prior to this hospitalization and he recommended nonsurgical. She was started on an aggressive bowel regim en with MiraLAX twice a day, lactulose once a day, bisacodyl suppositories daily and ultimately was o ffered enema. She also was offered a digital disimpaction on 03/30/18. It was extremely uncomfortab le for her and she declined to proceed. On digital disimpaction, her stool was noted to be soft and not pellet like, [place] stool type 5. Her bowel regimen from 03/31/18 to 04/01/18 was very efficaci ous and she had multiple soft loose bowel movements in the course of her hospitalization. A repeat a bdominal x- ray on 04/01/18 showed marked distention of her fecal retention and a decrease in her sto ol burden and no evidence of obstruction. The patient was tolerating a soft mechanical diet at the t lu of discharge and will need to be continued on aggressive bowel regimen on her return to [facility]. Furthermore, we have discontinued her opioid medication with the exception of tramadol, which s hould help in her opioid-induced constipation. 2. She had a urinalysis concerning for UTI on admission. Her urine culture ended up with no growth to date. She was briefly covered with ceftriaxone and that was discontinued on 03/31/18. 3. She has hemorrhoids. Her hemorrhoids are secondary to ongoing constipation and straining. She w as noted to have by her surgeon possible early rectal prolapse. She was maintained with Anusol Suppos itories with excellent effect and we added lidocaine jelly 2% to be applied per rectum after each bow el movement, which provided some relief. We counseled that continuing good hydration and continuing to evacuate stool will help in this ongoing hemorrhoidal problem and she can continue to follow with her surgeon, Dr. Loomis on followup. 4. For her peripheral vascular disease, status post recent fem-pop bypass, she has a wound VAC in [facility] and can continue care at [facility] in terms of her rehabilitation. 5. Her other chronic problems list her coronary artery disease status post PCI. She was maintained o n her aspirin, Plavix, and statin. 6. Chronic pain from her numerous surgeries. As noted, her pain control will be now with Tylenol Ex tra Strength. We added cyclobenzaprine 5 mg t.i.d. p.r.n. with excellent effect and lidocaine patch to effected area of most pain as needed daily with good effect. Tramadol 50 mg p.o. q.8 hours p.r.n. for severe pain with good effect and she is also offered ibuprofen 600 mg up to q.8 hours as needed for pain with good effect. 7. Her hypertension was managed with her home medications, lisinopril and metoprolol with good effec t. No other active problems were managed in this hospitalization. On day of discharge, her vital signs are stable; afebrile, 97.4; blood pressure 113/70; pulse rate in the 70s; satting 96% on room air. Her labs on the day of discharge notable for an H and H of 11.2 and 33, otherwise, fully unremarkable with a normal BMP. Her abdominal x-ray on day of discharge is notable for interval decrease in burden of stool within th e colon and the magnitude of the rectal distention is significantly lower compared to 03/30/18 exam. Microbiology is notable for no growth to date of urine cultures collected on 03/29/18. Review of systems was done on day of discharge, it was negative with the exception for abdominal pain that was improving compared to admission and some rectal pain, which was improving compared to admis abdifatah, ongoing chronic pain that is unchanged in nature. TIME SPENT: On this discharge was 45 minutes with over half of that spent in counseling with the josé antonio quiles at the bedside. She is stable to return to [facility] where they can continue aggressive bowel regimen. Hold her o pioid pain medications with the exception of tramadol and the patient is counseled as such. She also was tolerating mechanical soft diet, she may advance that as tolerated while at [facility]. ISSUES TO FOLLOW UP ON POST DISCHARGE: 1. Constipation and fecal retention. She will need to find a balance with an appropriate bowel tom men to continue moving the remainder of her stool burden. Currently, MiraLAX daily, lactulose as need ed, probably twice daily, suppository daily and her stool softener docusate will be appropriate. Cou ld increase the MiraLAX up to 2 or 3 times a day as well as increase the lactulose if not having a sharon wel movement within 24 hours. Goal will be to have at least 1 soft bowel movement every 24 hours mov ing forward. 2. Chronic pain. Pain medications were changed and a long discussion had with the patient regarding the limitations of opioid pain medication in the setting of her GI response to opioid pain medicatio ns. She understands to use Tylenol, ibuprofen, cyclobenzaprine, and lidocaine patch throughout the d ay, can use tramadol as needed for most severe pain, which she is going to attempt to use just at [facility]. I answered all the patient's questions and discussed the case with the other providers who were invol ashley. There are no further questions and she is stable for discharge back to [facility]. [id number]/CPS #: [id number]
[2018-04-01 15:53] VITALS: BP 96/61
== END 2018-04-01 17:00 | DRG 254 ==
LOC: ED 14:05 → MED 22:50 → OBSVTOIN 03-29 12:00
PROVIDERS: ADMIT Internal Medicine; ATTEND Internal Medicine
DX: K59.03 Drug induced constipation (principal); L97.919 Non-pressure chronic ulcer of unspecified part of right lower leg with unspecified severity; T40.2X5A Adverse effect of other opioids, initial encounter; I25.10 Atherosclerotic heart disease of native coronary artery without angina pectoris; I11.9 Hypertensive heart disease without heart failure; I73.9 Peripheral vascular disease, unspecified; E78.5 Hyperlipidemia, unspecified; N81.4 Uterovaginal prolapse, unspecified; K64.4 Residual hemorrhoidal skin tags; G89.29 Other chronic pain; Y92.9 Unspecified place or not applicable; Z95.5 Presence of coronary angioplasty implant and graft; Z82.49 Family history of ischemic heart disease and other diseases of the circulatory system; Z80.0 Family history of malignant neoplasm of digestive organs; F17.210 Nicotine dependence, cigarettes, uncomplicated; E66.9 Obesity, unspecified; Z68.32 Body mass index [BMI] 32.0-32.9, adult; I95.9 Hypotension, unspecified
CPT/HCPCS: 36415; 71046; 74018; 74019; 74177; 80048; 80053; 81003; 81015; 83605; 83690; 85025; 85610; 85730; 87040; 87086; 87641; 99285; A9270-GY; J0696; J1885; J2270; Q9967